=== PATIENT | male | born 1960 | race African-American/Black ===

== ENCOUNTER 2021-11-26 12:12 | Emergency (ER) | payer MEDICAID, SELFPAY ==
--- NOTE | ~2021-11-26 | XR_ITS ---
EXAMINATION: XR CHEST CLINICAL INFORMATION: Fall. Head injury. COMPARISON: 07/28/2019 TECHNIQUE: Frontal view of the chest was obtained. FINDINGS: Bibasilar subsegmental atelectasis. No parenchymal consolidation. No pleural effusion. No pneumothorax. Cardiomediastinal silhouette and pulmonary vascularity are within normal limits. No acute osseous abnormalities. XR/XR chest 1V IMPRESSION: No acute findings.
[2021-11-26 12:21] VITALS: BP 123/80; BP 143/82; PULSE 50; RESP 16; TEMP 36.8; O2SAT 100; BMI 25.7
--- NOTE | 2021-11-26 12:26 | ED.FALL ---
HPI - Fall General Chief Complaint: Fall Stated Complaint: fall neck and back pain Time Seen by Provider: 11/26/21 12:16 Source: patient and EMS Mode of arrival: EMS Limitations: other (Poor historian) History of Present Illness HPI Narrative: 61-year-old male c PMHX of schizophrenia, diabetes, HTN, CAD, atrial fibrillation currently on aspirin no other blood thinners, hypothyroidism, PVD disease, iron deficiency anemia, asthma, COPD, glaucoma, adrenal cortical insufficiency, history of alcohol abuse, history of cocaine abuse, depression, neuropathy, movement disorder, GERD and trans metatarsal amputation left foot currently residing at [facility] presenting to the ED via EMS with C-collar in place after an unwitnessed fall at [facility] denies any complaints. Although initially at [facility] he was complaining of neck and back pain although he denies that this time. He denies loss of consciousness or prolonged down time. He denies any symptoms prior to the fall. He reports only head and neck and back pain after the fall otherwise denies any other symptoms. MD complaint: fall Onset (ago): minute(s) (Prior to arrival) Fall witnessed: no [facility] Loss of consciousness: none Prolonged down time: no Symptoms prior to fall: none Context: tripped/slipped Location of injury: head, neck and back Severity: mild Quality: aching Associated symptoms (after fall): other (Head/neck and back pain which he reports has resolved) Related Data Allergies Allergy/AdvReac Type Severity Reaction Status Date / Time doxycycline [DOXYCYCLINE] Allergy Unknown UNKNOWN Unverified 02/27/20 19:09 Penicillins [PENICILLINS] Allergy Unknown UNKNOWN-PER Unverified 02/27/20 19:09 JORDYN MASCORRO AT [facility] penicillin Allergy Unknown rash Uncoded 03/08/18 00:00 Review of Systems Review of Systems: Constitutional : No Fever, No Chills ENT/Mouth : No Ear Pain, No Hoarseness, No sore throat Eyes: No Eye Pain, No Swelling, No Redness, No Foreign Body Cardiovascular : No Chest Pain, No SOB Respiratory : No Cough, No Dyspnea Gastrointestinal : No Nausea, No Vomiting, No Diarrhea, No abdominal Pain Genitourinary : No Dysuria, No Hematuria Musculoskeletal : +head/neck/back pain/injury which he reports has resolved and has no pain any longer, No Myalgias, No Joint Swelling Skin : No Skin lacerations, No rash Neuro : No Weakness, No Numbness, No Paresthesias, No Loss of Consciousness, No Dizziness, No Headache Psych : No Anxiety/Panic, No Depression Heme/Lymph: no easy bruising, no Lymphadenopathy Endocrine : No Polyuria, No Polydipsia Yes all other systems are reviewed and are negative [facility] Past Medical History Attestation statement: The following information was validated with the patient. Source: old records reviewed and nursing notes reviewed Medical History History of alcohol abuse History of cocaine abuse Surgical History History of transmetatarsal amputation of left foot Social History Social History Advance Directives: No Advance Directives Information Provided: No Physical Exam Vital Signs: Vital Signs: Last Vital Signs Temp 98.2 F 11/26/21 12:21 Pulse 50 11/26/21 12:21 Resp 16 11/26/21 12:21 BP 143/82 H 11/26/21 12:21 BMI result Body Mass Index 25.7 vital signs have been reviewed as normal and appeared to be correct. Blood pressure normal. Heart rate normal. Respiration rate normal. Temperature normal. Oxygen saturation normal. Appearance: Alert. Oriented X3. No acute distress. Head: Normal external exam. Normocephalic. Atraumatic. No Hansen signs noted. No raccoon eyes noted Eyes: PERRLA. EOMI. Conjunctiva and sclera normal. Eyelids normal. ENT: EAC normal. TM's Normal. No septal hematoma noted. No hemotympanum noted. Pharynx normal. Uvula midline. Moist mucous membranes. No lesions/ulcerations or masses noted on the tongue. Normal voice. No trismus noted. No drooling noted. No muffled voice noted. Neck: C-collar in place. Will not removed. Normal inspection. Neck supple. FROM. No adenopathy. Thyroid Normal. No tracheal deviation noted. No crepitus is noted. No meningeal signs. No neck mass noted. No signs of trauma noted. Nontender. CVS: Normal heart rate and rhythm. Heart sound normal. Pulses normal throughout. No murmurs/rales/gallops. Respiratory: No respiratory distress. Painless inspiration. Breath sounds normal. No wheezes/rales/rhonchi noted. Chest nontender. No crepitus is noted. No accessory muscle usage noted or decreased air movement noted. No signs of trauma. Abdomen: Soft and nontender. Bowel sounds normal in all 4 quadrants. No distention noted. No organomegaly noted. No visible injury noted. Back: No CVA tenderness. Full range of motion noted. Nontender. No signs of trauma. Patient neuro intact bilaterally and distally on all 4 extremities. Patient's reflexes intact bilaterally and distally on all 4 extremities. No rashes/lesion/induration/fluctuance or signs of infection noted. Skin: Skin warm and dry. Normal skin color. Normal skin turgor. No rashes/lesions/lacerations noted. Extremities: No lower extremity edema. No calf tenderness is noted. Extremities exhibit normal range of motion and nontender. Neuro: Oriented X 3. No motor deficit. No sensory deficit. Reflexes normal. Normal steady gait. No focal neuro deficits noted. CN's II-XII intact bilaterally? Vascular: + radial pulses/+ 2 distal pedal pulses/+2 dorsalis pedis b/l. Normal cap refill. No cyanosis noted to upper extremity nails and lower extremity toes nails. Course Course Course Narrative: 12:30pm - 61-year-old male c PMHX of schizophrenia, diabetes, HTN, CAD, atrial fibrillation currently on aspirin no other blood thinners, hypothyroidism, PVD disease, iron deficiency anemia, asthma, COPD, glaucoma, adrenal cortical insufficiency, history of alcohol abuse, history of cocaine abuse, depression, neuropathy, movement disorder, GERD and trans metatarsal amputation left foot currently residing at [facility] presenting to the ED via EMS with C-collar in place after an unwitnessed fall at [facility] denies any complaints although at care when he was complaining of head/neck and back pain. Plan: Labs, CT scan of brain/cervical spine/thoracic and lumbar spine, chest x-ray, COVID swab, UA, EKG and re-evaluate. Reevaluation(s) Reevaluation #1: - patient ripped off the C-collar and is refusing CT scan of brain/cervical spine/thoracic and lumbar spine and refusing all labs reports that he feels completely fine does not have any pain and wants to go back to [facility] at this time. He reports that he will not get any blood work done and he does not need a CT scan of his brain/cervical spine/thoracic or lumbar spine reports he feels completely fine and that we cannot legally make him do these tests and imaging if he refuses and if he is alert and oriented x3. Patient is alert and oriented x3. He can make his own medical decisions. Therefore at this time all labs and imaging cancer at this time patient will be transported back to [facility] he is moving all extremities and no focal deficits. He has been up walking around without any deficits. He also ate a putting and a sandwich and drank some juice without any difficulties. Therefore will send back to [facility] at this time via EMS. Time: 13:06 MDM - Fall Medical Records Attestation: I reviewed the patient's medical records. Lab Data Attestation: I reviewed the patient's lab results. Discharge Plan Discharge Clinical Impression: Fall Patient Disposition: Xfer SNF Instructions: Fall Prevention for Older Adults (ED) Referrals: Young Valentino DO [Primary Care Provider] - 2 days Interventions: ED Discharge Assessment Last Done: 11/26/21 14:45 Discharge Date/Time: 11/26/21 14:46
--- NOTE | 2021-11-26 13:27 | PC.NURSE ---
pt moved his bowels of soft brown stool noted after a fleets enema.
== END 2021-11-26 14:46 | disposition skilled nursing facility (03) ==
PROVIDERS: Emergency Provider Student in an Organized Health Care Education/Training Program; PCP Hospitalist
DX: Z04.3 Encounter for examination and observation following other accident (principal); E11.9 Type 2 diabetes mellitus without complications; I10 Essential (primary) hypertension; I48.91 Unspecified atrial fibrillation; I25.10 Atherosclerotic heart disease of native coronary artery without angina pectoris; J44.9 Chronic obstructive pulmonary disease, unspecified; Z79.82 Long term (current) use of aspirin; Z91.81 History of falling
CPT/HCPCS: 71045; 99282; 99283